=== PATIENT | female | born 1935 | race Caucasian/White ===

== ENCOUNTER 2017-01-16 07:40 | Emergency (ER) | payer MEDICARE, BC ==
[2017-01-16 08:07] VITALS: BP 124/62
[2017-01-16] MEDS ORDERED: fentaNYL 100 MCG/2 ML SDV ONE (08:23)
[2017-01-16] MEDS ORDERED: fentaNYL 100 MCG/2 ML SDV IVPUSH ONE ×2 (08:29→09:51)
[2017-01-16] MEDS ORDERED: cefTRIAXone 1 GM Vial IVPUSH SCH (09:45)
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
== END 2017-01-16 11:02 ==
LOC: CC.ED 07:40
DX: S72.001A Fracture of unspecified part of neck of right femur, initial encounter for closed fracture (principal); N39.0 Urinary tract infection, site not specified; R31.9 Hematuria, unspecified; I10 Essential (primary) hypertension; E78.00 Pure hypercholesterolemia, unspecified; E11.9 Type 2 diabetes mellitus without complications; F32.9 Major depressive disorder, single episode, unspecified; Z79.899 Other long term (current) drug therapy; Z79.82 Long term (current) use of aspirin; Z79.84 Long term (current) use of oral hypoglycemic drugs; Z88.1 Allergy status to other antibiotic agents; Z88.2 Allergy status to sulfonamides; W19.XXXA Unspecified fall, initial encounter; Y92.89 Other specified places as the place of occurrence of the external cause
CPT/HCPCS: 36415; 73502; 73551; 80053; 81001; 85025; 87086; 87088; 87186; 96374; 96375; 96376; 99285; J0696; J3010